=== PATIENT | female | born 2000 ===

== ENCOUNTER 2023-12-18 15:45 | Emergency (ER) | payer SELFPAY ==
[2023-12-18] MEDS: Lidocaine 1% 5 ML VIAL INJECT ONE (16:16)
== END 2023-12-18 16:31 | disposition home or self-care (01) ==
LOC: DL.ED 15:45
DX: S50.852A Superficial foreign body of left forearm, initial encounter (principal); W45.8XXA Other foreign body or object entering through skin, initial encounter; Y93.89 Activity, other specified
CPT/HCPCS: 99282; 99283; J3490